=== PATIENT | female | born 1980 | race Caucasian/White ===

== ENCOUNTER 2017-03-30 07:33 | Emergency (ER) | payer MEDICAID ==
[2017-03-30 07:40] VITALS: BMI 31.4
[2017-03-30 07:41] VITALS: BP 114/63; PULSE 105; RESP 17; TEMP 99.1; O2SAT 99
--- NOTE | 2017-03-30 09:11 | ED PDOC ---
HPI: General Adult Time Seen by Provider: 03/30/17 07:47 Chief Complaint (Nursing): Flu-like Symptoms Chief Complaint (Provider): Flu like symptoms History Per: Patient History/Exam Limitations: no limitations Onset/Duration Of Symptoms: Days Have you had recent travel within the past 21 days to any of the following countries: [place], [place], [place] or [place]?: No Current Symptoms Are (Timing): Still Present Additional History Per: Patient Additional Complaint(s): 36yo female, presents to ED for evaluation of fever and bodyaches for the past 1 day. Patient reports a Tmax of 102 degrees and states she feels associated chills, ear and throat pain. She denies any known sick contacts. Patient reports she took Tylenol for her symptoms with no relief. No other medical complaints. Past Medical History Reviewed: Historical Data, Nursing Documentation, Vital Signs Vital Signs: Last Vital Signs Temp 99.1 F 03/30/17 07:40 Pulse 105 H 03/30/17 07:40 Resp 17 03/30/17 07:40 BP 114/63 03/30/17 07:40 Pulse Ox 99 03/30/17 07:40 - Medical History PMH: No Chronic Diseases Denies: Depression, Chronic Kidney Disease - Surgical History Surgical History: Cholecystectomy, (x3) - Family History Family History: States: No Known Family Hx, Unknown Family Hx - Home Medications Home Medications: Ambulatory Orders Medication Instructions Recorded Ibuprofen [Motrin] 600 mg PO Q6 PRN #15 tab 03/26/16 Azithromycin [Zithromax] 250 mg PO DAILY #6 tab 05/05/16 Benzonatate [Tessalon Perle] 100 mg PO Q8 PRN #30 capsule 05/05/16 Fluticasone Propionate [Flonase] 2 spr NS DAILY PRN #1 bottle 05/05/16 - Allergies Allergies/Adverse Reactions: Allergies Allergy/AdvReac Type Severity Reaction Status Date / Time No Known Allergies Allergy Verified 03/26/16 14:20 Review of Systems ROS Statement: Except As Marked, All Systems Reviewed And Found Negative Constitutional: Positive for: Fever, Chills, Malaise ENT: Positive for: Ear Pain, Throat Pain Physical Exam - Reviewed Nursing Documentation Reviewed: Yes Vital Signs Reviewed: Yes - Physical Exam Appears: Positive for: Non-toxic, Uncomfortable Head Exam: Positive for: ATRAUMATIC, NORMAL INSPECTION, NORMOCEPHALIC Eye Exam: Positive for: EOMI, PERRL ENT: Positive for: TM Is/Are (normal ). Negative for: Pharyngeal Erythema, Tonsillar Exudate, Tonsillar Swelling Neck: Positive for: Supple Cardiovascular/Chest: Positive for: Regular Rate, Rhythm. Negative for: Murmur Respiratory: Positive for: Normal Breath Sounds. Negative for: Respiratory Distress Neurologic/Psych: Positive for: Alert, Oriented. Negative for: Motor/Sensory Deficits - ECG O2 Sat by Pulse Oximetry: 99 (RA) Pulse Ox Interpretation: Normal Medical Decision Making Medical Decision Making: Time: 814 Impression: URI Plan: -- Throat culture -- Rapid flu -- Rapid strep Reassess Scribe Attestation: Documented by Janelle Calvillo acting as a scribe for Clay Bay MD. Provider Attestation: All medical record entries made by the Scribe were at my direction and personally dictated by me. I have reviewed the chart and agree that the record accurately reflects my personal performance of the history, physical exam, medical decision making, and the department course for this patient. I have also personally directed, reviewed, and agree with the discharge instructions and disposition. Disposition - Disposition Referrals: Bianca Garcia MD [Primary Care Provider] -
== END 2017-03-30 11:34 | disposition home or self-care (01) ==
LOC: H.ER 07:33 → SUPCPDRO 07:33 → H.ER 11:34
DX: J06.9 Acute upper respiratory infection, unspecified (principal)
CPT/HCPCS: 81025; 87070; 87430; 87804; 96372; 99283; J1885

== ENCOUNTER 2017-12-28 09:07 | Emergency (ER) | payer MEDICAID ==
[2017-12-28 09:12] VITALS: BP 105/69; PULSE 67; RESP 18; O2SAT 98
[2017-12-28 09:13] VITALS: BMI 31.1
--- NOTE | 2017-12-28 09:32 | ED PDOC ---
Upper Extremity Pain/Injury Time Seen by Provider: 12/28/17 09:16 Chief Complaint (Provider): Left thumb pain History Per: Patient History/Exam Limitations: no limitations Onset/Duration Of Symptoms: Days (x3) Quality: "Pain" Exacerbating Factor(s): Movement (on extension ) Additional Complaint(s): Hetal Bailey is a 37 year old female, with no significant past medical history, who presents to the emergency department stating he hyperextended his left thumb x3 days ago. Patient reports pain at base of left thumb and states pain is worst on extension. He denies any other injuries or medical complaints. PMD: None provided. Past Medical History Reviewed: Historical Data, Nursing Documentation, Vital Signs Vital Signs: Last Vital Signs Temp 97 F L 12/28/17 09:12 Pulse 67 12/28/17 09:12 Resp 18 12/28/17 09:12 BP 105/69 12/28/17 09:12 Pulse Ox 98 12/28/17 09:12 - Medical History PMH: No Chronic Diseases Denies: Depression, Chronic Kidney Disease - Surgical History Surgical History: Cholecystectomy, (x3) - Family History Family History: States: Unknown Family Hx - Home Medications Home Medications: Ambulatory Orders Medication Instructions Recorded Ibuprofen [Motrin] 600 mg PO Q6 PRN #15 tab 03/26/16 Azithromycin [Zithromax] 250 mg PO DAILY #6 tab 05/05/16 Benzonatate [Tessalon Perle] 100 mg PO Q8 PRN #30 capsule 05/05/16 Fluticasone Propionate [Flonase] 2 spr NS DAILY PRN #1 bottle 05/05/16 Ibuprofen [Motrin] 600 mg PO Q6H PRN #20 tab 03/30/17 Naproxen [Naprosyn] 500 mg PO Q12H #20 tab 12/28/17 - Allergies Allergies/Adverse Reactions: Allergies Allergy/AdvReac Type Severity Reaction Status Date / Time No Known Allergies Allergy Verified 12/28/17 10:08 Review of Systems ROS Statement: Except As Marked, All Systems Reviewed And Found Negative Musculoskeletal: Positive for: Hand Pain (left thumb) Physical Exam - Reviewed Nursing Documentation Reviewed: Yes Vital Signs Reviewed: Yes - Physical Exam Appears: Positive for: No Acute Distress Head Exam: Positive for: ATRAUMATIC, NORMAL INSPECTION, NORMOCEPHALIC Skin: Positive for: Normal Color, Warm, Dry Eye Exam: Positive for: Normal appearance Neck: Positive for: Painless ROM Extremity: Positive for: Normal ROM (Palmar aspect pain against resistance when flexing), Tenderness (at MCP area. ). Negative for: Deformity (left thumb), Swelling (left thumb, no ecchymosis) Neurologic/Psych: Positive for: Alert, Oriented. Negative for: Motor/Sensory Deficits - ECG O2 Sat by Pulse Oximetry: 98 (RA) Pulse Ox Interpretation: Normal Medical Decision Making Medical Decision Making: Time: 09:16 Initial Plan: --Hand left thumb [RAD] --Reevaluation ----- Scribe Attestation: Documented by Willis Zavala, acting as a scribe for Bogdan Gross MD. Provider Scribe Attestation: All medical record entries made by the Scribe were at my direction and personally dictated by me. I have reviewed the chart and agree that the record accurately reflects my personal performance of the history, physical exam, medical decision making, and the department course for this patient. I have also personally directed, reviewed, and agree with the discharge instructions and disposition. Disposition - Clinical Impression Clinical Impression: Thumb sprain - Patient ED Disposition Is Patient to be Admitted: No Counseled Patient/Family Regarding: Studies Performed, Diagnosis, Need For Followup, Rx Given - Disposition Referrals: [facility] [Outside] Disposition: Routine/Home Disposition Time: 10:13 Condition: FAIR Prescriptions: Naproxen [Naprosyn] 500 mg PO Q12H #20 tab Instructions: Sprained Thumb
[2017-12-28 10:11] VITALS: TEMP 97
--- NOTE | 2017-12-28 10:14 | RAD ---
Date of service: 12/28/2017 PROCEDURE: Left Thumb radiographs. HISTORY: trauma COMPARISON: None. TECHNIQUE: AP radiograph of the left hand, as well as spot oblique and lateral images of thumb were obtained. FINDINGS: LEFT THUMB: No acute fracture or destructive lesion. Remainder of the left hand (as seen on the AP view) grossly unremarkable. Normal accessory ossicles are seen paired at the volar side of the 1st metacarpal phalangeal joint at the thumb base. Limited deformity of the tuft is seen from known prior fracture of the distal phalanx of the thumb. JOINTS: No subluxation or dislocation. SOFT TISSUES: Normal. OTHER FINDINGS: None. IMPRESSION: Old healed fracture tuft left thumb distal phalanx. No acute fracture, subluxation or dislocation. Findings reviewed and discussed with Dr. Gross 12/28/2017 10:05 a.m..
== END 2017-12-28 11:29 | disposition home or self-care (01) ==
LOC: H.ER 09:07
DX: S63.602A Unspecified sprain of left thumb, initial encounter (principal)

== ENCOUNTER 2018-03-03 10:12 | Emergency (ER) | payer MEDICAID ==
[2018-03-03 10:12] VITALS: BMI 31.1
[2018-03-03 10:32] VITALS: RESP 18
--- NOTE | 2018-03-03 10:38 | ED PDOC ---
HPI: General Adult Time Seen by Provider: 03/03/18 10:34 Chief Complaint (Provider): fever History Per: Patient Additional Complaint(s): 37-year-old female presents with left ear pain and sore throat starting this morning. Patient noted fever as of this morning as well. 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 Patient denies cough. She also has overall body aches. PMD: Dr. Garcia Past Medical History Reviewed: Historical Data, Nursing Documentation, Vital Signs Vital Signs: Last Vital Signs Temp 102.6 F H 03/03/18 10:31 Pulse 118 H 03/03/18 10:31 Resp 18 03/03/18 10:31 BP 114/72 03/03/18 10:31 Pulse Ox 98 03/03/18 10:31 - Medical History PMH: No Chronic Diseases - Surgical History Surgical History: Cholecystectomy, (x3) - Family History Family History: States: No Known Family Hx - Living Arrangements Living Arrangements: With Family - Social History Current smoker - smoking cessation education provided: No Alcohol: None - Home Medications Home Medications: Ambulatory Orders Medication Instructions Recorded Ibuprofen [Motrin] 600 mg PO Q6 PRN #15 tab 03/26/16 Azithromycin [Zithromax] 250 mg PO DAILY #6 tab 05/05/16 Benzonatate [Tessalon Perle] 100 mg PO Q8 PRN #30 capsule 05/05/16 Fluticasone Propionate [Flonase] 2 spr NS DAILY PRN #1 bottle 05/05/16 Ibuprofen [Motrin] 600 mg PO Q6H PRN #20 tab 03/30/17 Naproxen [Naprosyn] 500 mg PO Q12H #20 tab 12/28/17 Amoxicillin/Clavulanate [Augmentin 1 tab PO BID #14 tab 03/03/18 875 MG-125 MG] - Allergies Allergies/Adverse Reactions: Allergies Allergy/AdvReac Type Severity Reaction Status Date / Time No Known Allergies Allergy Verified 03/03/18 10:41 Review of Systems ROS Statement: Except As Marked, All Systems Reviewed And Found Negative Constitutional: Positive for: Fever, Chills, Other (body aches) ENT: Positive for: Ear Pain (left), Throat Pain Respiratory: Negative for: Cough Gastrointestinal: Negative for: Nausea, Vomiting, Abdominal Pain Genitourinary Female: Negative for: Dysuria Physical Exam - Reviewed Nursing Documentation Reviewed: Yes Vital Signs Reviewed: Yes - Physical Exam Appears: Positive for: Well, Non-toxic, No Acute Distress Skin: Positive for: Normal Color. Negative for: Rash Eye Exam: Positive for: Normal appearance ENT: Positive for: TM Is/Are (Left tympanic membrane is bulging with obscured landmarks and erythema), Pharyngeal Erythema, Tonsillar Exudate, Tonsillar S welling Cardiovascular/Chest: Positive for: Regular Rate, Rhythm Respiratory: Positive for: Normal Breath Sounds. Negative for: Wheezing, Respiratory Distress Extremity: Positive for: Normal ROM Neurologic/Psych: Positive for: Alert, Oriented - Laboratory Results Urine POC: Negative Urine dip results: Negative for: Leukocyte Esterase, Blood, Nitrate, Ketones, Glucose, Bilirubin, Protein - ECG O2 Sat by Pulse Oximetry: 98 Pulse Ox Interpretation: Normal Medical Decision Making Medical Decision Making: Impression: Left otitis media and tonsillitis Plan: Urine test urine dip PO motrin PO tylenol Augmentin 875 mg PO initial tab Patient felt nauseous after meds were given. She states she did not have any thing to eat this morning. Zofran 4 mg ODT tablet provided which helped with nausea. Repeat vitals improved, temp is now normal. Patient was instructed to take antibiotics with food, rest and drink plenty of fluids. Prescription for Augmentin provided. Fever control instructions given. Disposition - Clinical Impression Clinical Impression: Tonsillitis, Otitis media - Patient ED Disposition Is Patient to be Admitted: No Counseled Patient/Family Regarding: Studies Performed, Diagnosis, Need For Followup, Rx Given - Disposition Referrals: Bianca Garcia MD [Medical Doctor] - Disposition: Routine/Home Disposition Time: 11:01 Condition: STABLE Additional Instructions: Take antibiotics as directed. Continue Tylenol every 4 hours and Motrin every 6 hours for fever control. Drink plenty fluids. Follow-up with primary doctor in 1-2 days. Prescriptions: Amoxicillin/Clavulanate [Augmentin 875 MG-125 MG] 1 tab PO BID #14 tab Instructions: Ear Infections (Otitis Media), Sore Throat, Adult (DC) Forms: [facility] ED School/Work Excuse
[2018-03-03] MEDS ORDERED: Amoxicillin-Clav 875-125 mg Tab PO STA (10:54)
[2018-03-03] MEDS ORDERED: Amoxicillin-Clav 875-125 mg Tab PO ONE (11:03)
[2018-03-03 12:20] VITALS: TEMP 99.5
[2018-03-03 12:33] VITALS: O2SAT 98
[2018-03-03 12:40] VITALS: BP 102/64; PULSE 88
== END 2018-03-03 12:39 | disposition home or self-care (01) ==
LOC: H.ER 10:12
DX: J03.90 Acute tonsillitis, unspecified (principal); H66.92 Otitis media, unspecified, left ear

== ENCOUNTER 2018-07-09 07:30 | Day surgery (SDC) | payer MEDICAID ==
[2018-07-07 18:56] VITALS: BMI 31.5
--- NOTE | 2018-07-09 07:42 | CP.SDSHP ---
Same Day Surgery H & P - History Proposed Procedure: Lumbar medial branch nerve blocks Pre-Op Diagnosis: Lumbar spondylosis - Previous Medical/Surgical History Pain: 8.Very Severe - Allergies Allergies: Allergies No Known Allergies Allergy (Verified 03/03/18 10:41) - Physical Exam Neuro: WNL Heart: WNL Lungs: WNL - Impression Impression: Lumbar spondylosis Pt. Evaluated Today:Candidate for Anesthesia & Procedure: Yes Short Stay Discharge - Short Stay Discharge Admitting Diagnosis/Reason for Visit: M47.816 Disposition: HOME/ ROUTINE
[2018-07-09] MEDS ORDERED: Lactated Ringer's 1,000 ML IV ONE (08:00)
[2018-07-09 08:43] VITALS: RESP 18
[2018-07-09] MEDS ORDERED: Lidocaine 2% PF (10 ml) Amp ONE (08:54)
[2018-07-09] MEDS ORDERED: MethylPREDNISolone Depo 40 mg/ml Inj ONE (08:54)
[2018-07-09] MEDS ORDERED: Bupivacaine HCl 0.25% PF (30 ml) Inj ONE (08:54)
[2018-07-09] MEDS ORDERED: Iohexol 300 10 ML ONE (08:57)
[2018-07-09] MEDS ORDERED: Bupivacaine 0.25% Inj(30mL) IJ ONE (09:01)
[2018-07-09] MEDS ORDERED: MethylPREDNISolone Depo 40 mg/ml Inj IM ONE (09:01)
[2018-07-09] MEDS ORDERED: Iohexol 300 10 ML IJ ONE (09:01)
[2018-07-09] MEDS ORDERED: Lidocaine 2% Inj (20ml) IJ ONE (09:01)
[2018-07-09] MEDS ORDERED: Midazolam 2 MG/2 ML VIAL ONE (09:04)
[2018-07-09] MEDS ORDERED: Propofol 10 mg/ml Inj (20 ML) ONE (09:06)
[2018-07-09] MEDS ORDERED: Lidocaine 1% 5ml Abboject ONE (09:06)
[2018-07-09] MEDS ORDERED: HYDROmorphone 0.5 mg/0.5 ml ISec IVP PRN (09:20)
[2018-07-09] MEDS ORDERED: Lactated Ringer's 1,000 ML IV SCH (09:30)
[2018-07-09] MEDS ORDERED: Oxycodone/Acetaminophen 5/325 mg Tab PO PRN (10:32)
[2018-07-09] MEDS ORDERED: Oxycodone/Acetaminophen 5/325 mg Tab PO ONE (11:26)
[2018-07-09 13:13] VITALS: BP 105/85; PULSE 73; TEMP 97.8; O2SAT 95
--- NOTE | 2018-07-09 13:34 | RAD ---
Date of service: 07/09/2018 PROCEDURE: Intraoperative Fluoroscopy. HISTORY: C ARM FINDINGS: Fluoroscopic assistance was provided. Fluoroscopy time = 27.0 sec. Radiation dose = 6.14 mGy. Please refer to the operative report from HOOD Bailey.
--- NOTE | 2018-07-09 18:16 | OP ---
PROCEDURE DATE: 07/09/2018 PREOPERATIVE DIAGNOSIS: Lumbar spondylosis. POSTOPERATIVE DIAGNOSIS: Lumbar spondylosis. PROCEDURE: Bilateral L3, L4 and L5 medial branch nerve blocks. ANESTHESIOLOGIST: Ricki Rdz MD SURGEON: Lloyd Khan MD ANESTHESIA TYPE: Monitored anesthesia care. COMPLICATIONS: None. SPECIMEN: None. DESCRIPTION OF PROCEDURE: Procedure is as follows. After we had a discussion of the procedure with the patient including its risks, benefits, alternatives, outcome data, possibility of no effect or increased pain, the patient consented to the procedure. She denied any recent infection, bleeding tendencies, or being on anticoagulants. Decision was then made to proceed to the OR. The patient was placed on the fluoroscopy table in a prone position with two pillows underneath her abdomen. The back was prepped and draped in the usual sterile fashion, and a sterile technique was adhered to during the entire procedure. The L3, L4, and L5 medial branch nerves were located at the intersection of the superior articular process and the transverse process of the corresponding pedicles. The procedure was first performed on the right side by turning the fluoroscopy towards the right at approximately 15 degrees. The skin overlying the three above targeted areas was then infiltrated with 1% lidocaine using 25-gauge needle. Subsequently, a 22-gauge 3.5-inch spinal needle was then incrementally advanced under fluoroscopic guidance until tip of the needle made bony contact with all three targeted areas. After satisfactory positioning of all three needles, approximately 3 mL of 0.25% Marcaine and Depo-Medrol mixture was injected. The needle was then removed and the same exact procedure was performed on the contralateral left side using the same medications and techniques. At the end of the case, the patient's back was cleaned, and a dry bandage was applied. The patient was then transferred to the recovery area in good condition without any signs of [employer] toxicity or any neurological deficit. She will be following up in our office in approximately two to four weeks. Aidan Khan MD
== END 2018-07-09 13:35 | disposition home or self-care (01) ==
LOC: H.OPSURG 07:30
PROVIDERS: ATTEND Anesthesiology
DX: M47.816 Spondylosis without myelopathy or radiculopathy, lumbar region (principal)
CPT/HCPCS: 64493; 64494; J1030; J1885; J2250; J2405; J2704; J3010; J7120; Q9967